=== PATIENT | female | born 1945 | race African-American/Black ===

== ENCOUNTER 2017-02-17 15:27 | Emergency (ER) | payer MEDICARE, MEDICAID | END 2017-02-17 17:07 | disposition home or self-care (01) | LOC: D.ER 15:27 | DX: E11.9 Type 2 diabetes mellitus without complications (principal); F03.90 Unspecified dementia, unspecified severity, without behavioral disturbance, psychotic disturbance, mood disturbance, and anxiety; K21.9 Gastro-esophageal reflux disease without esophagitis; I10 Essential (primary) hypertension ==